=== PATIENT | male | born 1985 | race African-American/Black ===

== ENCOUNTER 2017-02-20 13:29 | Emergency (ER) | payer SELFPAY | END 2017-02-20 14:06 | disposition home or self-care (01) | LOC: SCSER 13:29 | DX: B35.6 Tinea cruris (principal); F41.9 Anxiety disorder, unspecified; F17.210 Nicotine dependence, cigarettes, uncomplicated | CPT/HCPCS: 99282 ==

== ENCOUNTER 2017-02-24 08:43 | Emergency (ER) | payer SELFPAY ==
[2017-02-24] MEDS ORDERED: Ketorolac Tromethamine 30 MG/ML VIAL ONE (09:14)
[2017-02-24] MEDS ORDERED: Metoclopramide HCl 10 MG/2 ML VIAL ONE (09:14)
[2017-02-24] MEDS ORDERED: diphenhydrAMINE HCl 50 MG/ML 1 ML VIAL ONE (09:15)
[2017-02-24] MEDS ORDERED: methylPREDNISolone Sod Succ/PF 125 MG/2 ML VIAL ONE (11:27)
[2017-02-24] MEDS ORDERED: Magnesium Sulfate 2 GM/100 ML BAG ONE (11:27)
[2017-02-24] MEDS ORDERED: Water For Inject, Bacteriostat 30 ML ONE (11:28)
== END 2017-02-24 12:48 | disposition home or self-care (01) ==
LOC: ERS 08:43
DX: R51 Headache (principal); F41.9 Anxiety disorder, unspecified; F17.210 Nicotine dependence, cigarettes, uncomplicated
CPT/HCPCS: 96365; 96366; 96367; 96375; J1200; J1885; J2765; J2930; J3475

== ENCOUNTER 2017-03-19 04:55 | Emergency (ER) | payer SELFPAY ==
[2017-03-19] MEDS ORDERED: Lidocaine Viscous Sol 2% 15 ml UD Cup ONE (05:42)
[2017-03-19] MEDS ORDERED: Ondansetron HCl/PF 4 MG/2 ML Vial ONE (05:42)
[2017-03-19] MEDS ORDERED: Mag-Al 1200 mg/1200 mg/30 ML UDCUP ONE (05:42)
[2017-03-19 05:53] LABS: #Eosinphils 0.1 thou/uL (0.0-0.7); #Lymphocytes 1.6 thou/uL (1.20-3.40); #Monocytes 0.4 thou/uL (0.11-0.59); #Neutrophils 5.4 thou/uL (1.40-6.50); %Basophils 0.3 % (0.0-1.0); %Eosinophils 1.3 % (0.0-10.0); %Lymphocytes 21.5 % (21.0-51.0); %Monocytes 4.7 % (0.0-10.0); Hematocrit 45.3 % (42.0-52.0); Mean Platelet Volume 7.4 fL (7.4-10.4); Red Blood Cell (RBC) Count 5.01 mill/uL (4.70-6.10); White Blood Cell (WBC) Count 7.5 thou/uL (4.8-10.8)
[2017-03-19 06:08] LABS: Bilirubin Negative (Negative); Blood, Urine Negative (Negative); Glucose, Urine (Dipstick) Negative (Negative); Ketone, Urine Negative (Negative); Nitrite Negative (Negative); Protein, Urine (Dipstick) Negative (Neg-Trace)
[2017-03-19 06:16] LABS: ALT (SGPT) 14 U/L (8-55); AST (SGOT) 24 U/L (5-34); Alkaline Phosphatase 50 U/L (40-150); Anion Gap 13 mmol/L (10-20); BUN (Urea Nitrogen) 11 mg/dL (8.9-20.6); Bilirubin, Total 0.9 mg/dL (0.2-1.2); Calc. Creatinine Clearance 0 mL/min (70-130); Calcium 9.7 mg/dL (7.8-10.44); Carbon Dioxide 25 mmol/L (22-29); Chloride 105 mmol/L (98-107); Estimated GFR-MDRD Greater than 90; Globulin 3.2 g/dL (2.4-3.5); Lipase 9 U/L (8-78); Protein, Total 7.5 g/dL (6.0-8.3)
== END 2017-03-19 06:59 | disposition home or self-care (01) ==
LOC: ERS 04:55
DX: R11.2 Nausea with vomiting, unspecified (principal); R19.7 Diarrhea, unspecified; F41.9 Anxiety disorder, unspecified; F17.210 Nicotine dependence, cigarettes, uncomplicated
CPT/HCPCS: 80053; 81003; 83690; 85025; 96361; 96374; J2405

== ENCOUNTER 2017-08-09 20:56 | Emergency (ER) | payer OTHER, SELFPAY ==
--- NOTE | 2017-08-09 21:46 | RAD ---
RIGHT WRIST THREE VIEWS: History: Right wrist pain. FINDINGS: Carpals appear normally aligned. No evidence of carpal fracture. There is cortical thickening and there is also slight angulation of the mid shaft of the third metaca rpal suggesting an old injury. Recommend correlation clinically regarding tenderness at this site. IMPRESSION: 1. Angulation of the mid shaft of the third metacarpal suggesting old injury. Correlate clinically re garding tenderness at this location. 2. Carpals are otherwise unremarkable. POS: [facility]
--- NOTE | 2017-08-09 21:47 | RAD ---
LEFT KNEE FOUR VIEWS: History: Knee pain. FINDINGS: There is a bipartite patella. No acute fracture. No evidence of joint effusion. IMPRESSION: No acute abnormality. POS: [facility]
[2017-08-09] MEDS ORDERED: Adacel (T-DAP) 0.5 ML VIAL ONE (21:54)
[2017-08-09] MEDS ORDERED: Ketorolac Tromethamine 60 MG/2 ML VIAL ONE (21:54)
== END 2017-08-09 22:41 ==
LOC: ERS 20:56
DX: M25.562 Pain in left knee (principal); M25.531 Pain in right wrist; F17.210 Nicotine dependence, cigarettes, uncomplicated
CPT/HCPCS: 90471; 90715; 96372; 99406; J1885

== ENCOUNTER 2017-08-31 13:00 | Emergency (ER) | payer OTHER, SELFPAY | END 2017-08-31 13:25 | disposition home or self-care (01) | LOC: SCSER 13:00 | DX: L03.116 Cellulitis of left lower limb (principal); F41.9 Anxiety disorder, unspecified; F17.210 Nicotine dependence, cigarettes, uncomplicated | CPT/HCPCS: 99283 ==

== ENCOUNTER 2018-10-10 22:56 | Emergency (ER) | payer SELFPAY ==
[2018-10-10 23:12] LABS: #Basophils 0.2 thou/uL (0.0-0.2); #Eosinphils 0.2 thou/uL (0.0-0.7); #Lymphocytes 3.3 thou/uL (1.20-3.40); #Monocytes 0.6 thou/uL (0.11-0.59); #Neutrophils 3.5 thou/uL (1.40-6.50); %Basophils 2.2 % (0.0-1.0); %Eosinophils 2.1 % (0.0-10.0); %Lymphocytes 42.8 % (21.0-51.0); %Monocytes 7.3 % (0.0-10.0); %Neutrophils 45.6 % (42.0-75.0); Hemoglobin 15.3 g/dL (14.0-18.0); Mean Corpuscular HGB CONC 34.8 g/dL (32.0-36.0); Mean Corpuscular Hemoglobin 31.5 pg (27.0-31.0); Mean Corpuscular Volume 90.3 fL (78.0-98.0); Mean Platelet Volume 7.6 fL (7.4-10.4); Platelet Count 207 thou/uL (130-400); RBC Distribution Width 11.4 % (11.5-14.5); Red Blood Cell (RBC) Count 4.85 mill/uL (4.70-6.10); White Blood Cell (WBC) Count 7.7 thou/uL (4.8-10.8)
[2018-10-10] MEDS ORDERED: Lorazepam 2 MG/ML VIAL ONE ×2 (23:15→23:21)
--- NOTE | 2018-10-10 23:20 | RAD ---
Portable frontal chest radiograph: 10/10/2018 COMPARISON: 12/27/2008 HISTORY: Pain FINDINGS: Lungs are clear. Heart and mediastinal contours appear within normal limits. IMPRESSION: No acute findings.
[2018-10-10 23:31] LABS: Acetaminophen Less than 6.0 mcg/mL (10.0-30.0); Alcohol Less than 10 mg/dL (Less than 10); CK (CPK) 557 U/L (30-200); Salicylate Less than 8.0 mg/dL (15.0-30.0)
[2018-10-10 23:32] LABS: ALT (SGPT) 18 U/L (8-55); AST (SGOT) 28 U/L (5-34); Albumin 4.7 g/dL (3.5-5.0); Alkaline Phosphatase 62 U/L (40-150); Anion Gap 19 mmol/L (10-20); BUN (Urea Nitrogen) 12 mg/dL (8.9-20.6); Bilirubin, Total 0.6 mg/dL (0.2-1.2); Calc. Creatinine Clearance 0 mL/min (70-130); Calcium 9.6 mg/dL (7.8-10.44); Carbon Dioxide 21 mmol/L (22-29); Chloride 105 mmol/L (98-107); Estimated GFR-MDRD 76; Globulin 2.9 g/dL (2.4-3.5); Glucose 123 mg/dL (70-105); Potassium 3.5 mmol/L (3.5-5.1); Protein, Total 7.6 g/dL (6.0-8.3); Sodium 141 mmol/L (136-145)
--- NOTE | 2018-10-10 23:47 | CT ---
Head CT without contrast 10/10/2018: COMPARISON: 12/22/2014 HISTORY: Altered mental status TECHNIQUE: Axial CT imaging at 5 mm intervals from vertex through skull base without contrast FINDINGS: Imaged paranasal sinuses and mastoid air cells appear well aerated. No displaced calvarial fracture. No intracranial hemorrhage, midline shift, mass effect, or ventricular enlargement. IMPRESSION: No acute findings.
--- NOTE | 2018-10-10 23:51 | CT ---
CT cervical spine: 10/10/2018 HISTORY: Trauma TECHNIQUE: Axial CT imaging at 2.5 mm intervals through the cervical spine with coronal and sagittal reformatted imaging FINDINGS: The visualized lung apices are unremarkable. The C1 ring is intact. The dens, the occipital condyles, the C1-2 articulation, the atlantoaxial interspace, the craniocervi daniel junction, and the cervicothoracic junction demonstrate no acute findings. No prevertebral soft tissue swelling is noted. No acute fracture or evidence of dislocation is seen. IMPRESSION: No acute findings.
[2018-10-10] MEDS ORDERED: Adacel (T-DAP) 0.5 ML SYRINGE ONE (23:54)
== END 2018-10-11 00:28 ==
LOC: ERS 22:56 → EEVIPCON 22:56 → ERS 10-11 00:28
DX: S00.83XA Contusion of other part of head, initial encounter (principal); S50.311A Abrasion of right elbow, initial encounter; F16.129 Hallucinogen abuse with intoxication, unspecified; F41.9 Anxiety disorder, unspecified; F17.210 Nicotine dependence, cigarettes, uncomplicated; W05.0XXA Fall from non-moving wheelchair, initial encounter
CPT/HCPCS: 70450; 71045; 72125; 80053; 80307; 82550; 83735; 84484; 85025; 90471; 90715; 93005; 96361; 96374; 96375; J2060

== ENCOUNTER 2019-08-07 08:48 | Emergency (ER) | payer OTHER, SELFPAY ==
--- NOTE | 2019-08-07 10:40 | RAD ---
XR Shoulder Lt 3 View STANDARD History: Shoulder pain Comparison: Radiograph 2014 Findings: No acute fracture or malalignment. Ribs are intact. Soft tissues are unremarkable. Healed l eft first rib fracture. Impression: No acute osseous abnormality.
== END 2019-08-07 11:08 | disposition home or self-care (01) ==
LOC: ERS 08:48
DX: S46.912A Strain of unspecified muscle, fascia and tendon at shoulder and upper arm level, left arm, initial encounter (principal); F41.9 Anxiety disorder, unspecified; F17.210 Nicotine dependence, cigarettes, uncomplicated; X50.0XXA Overexertion from strenuous movement or load, initial encounter

== ENCOUNTER 2020-09-09 07:24 | Emergency (ER) | payer OTHER ==
[2020-09-09] MEDS ORDERED: Boostrix 0.5 ML (Tdap) VIAL ONE (07:48)
[2020-09-09] MEDS ORDERED: Lidocaine 1% w/Epinephrine 1:100K 20 ML VIAL ONE (07:48)
== END 2020-09-09 08:56 | disposition home or self-care (01) ==
LOC: ERS 07:24
DX: S51.011A Laceration without foreign body of right elbow, initial encounter (principal); F17.210 Nicotine dependence, cigarettes, uncomplicated; W25.XXXA Contact with sharp glass, initial encounter
CPT/HCPCS: 12002; 90471; 90715

== ENCOUNTER 2020-09-18 18:43 | Emergency (ER) | payer OTHER ==
[2020-09-18] MEDS ORDERED: Bacitracin 1 PK ONE (21:05)
== END 2020-09-18 21:20 | disposition home or self-care (01) ==
LOC: ERS 18:43
DX: S61.216A Laceration without foreign body of right little finger without damage to nail, initial encounter (principal); S51.019D Laceration without foreign body of unspecified elbow, subsequent encounter; F17.210 Nicotine dependence, cigarettes, uncomplicated; W25.XXXA Contact with sharp glass, initial encounter
CPT/HCPCS: 99282